=== PATIENT | male | born 1980 | race Caucasian/White ===

== ENCOUNTER 2021-12-07 11:08 | Emergency (ER) | payer OTHER ==
[~2021-12-07] VITALS: Ht 162.6 cm; Wt 72.6 kg
[2021-12-07 11:12] VITALS: BP 177/90
--- NOTE | 2021-12-07 11:24 | NUR ---
RECHECKED BS 229, RECHECKED TEMP 97.4 ORAL
--- NOTE | 2021-12-07 11:30 | NUR ---
WALKED IN ACCOMPANIED BY SISTER C/O NAUSEA AND VOMITING ONSET 1 DAY ACCOMPANIED BY EPIGASTRIC PAIN. PT BS 212 AT TRIAGE. AFEBRILE. ACTIVELY VOMITING YELLOW LIQUID AT BEDSIDE. PMH:DM1, DEAF, CARDIAC MURMUR NKA
[2021-12-07] MEDS ORDERED: ONDANSETRON 4 MG/2 ML VIAL ONE (11:34)
[2021-12-07] MEDS ORDERED: NACL 0.9% 1,000 ML IV SCH (11:35)
--- NOTE | 2021-12-07 11:35 | NUR ---
RECEIVED VERBAL ORDER FROM DR ROSA TO ADMINISTER 1L NS BOLUS AND 4MG ZOFRAN IVP.
[2021-12-07] MEDS ORDERED: ONDANSETRON 4 MG/2 ML VIAL IVP ONE (11:45)
--- NOTE | 2021-12-07 11:52 | NUR ---
XR AT BEDSIDE
--- NOTE | 2021-12-07 11:57 | NUR ---
URINE COLLECTED AND SENT TO LAB
[2021-12-07] MEDS ORDERED: HALOPERIDOL IM 5 MG/ML VIAL IM ONE (12:05)
[2021-12-07] MEDS ORDERED: FAMOTIDINE 20 MG/2 ML VIAL IVP ONE (12:10)
[2021-12-07] MEDS ORDERED: DICYCLOMINE HCL LIQUID 20 MG, ALUMINUM HYD/MAG/SIMETHICONE 30 ML, LIDOCAINE VISCOUS 2% ... PO ONE ×3 (12:45)
[2021-12-07 12:47] LABS: ALBUMIN 3.8 g/dL (3.4-5.0); ANION GAP 19.1 (8-16); CARBON DIOXIDE 21.5 mmol/L (21-32); CREATININE 0.9 mg/dL (0.6-1.3); POTASSIUM 3.6 mmol/L (3.5-5.1); TOTAL BILIRUBIN 0.7 mg/dL (0.0-1.0)
[2021-12-07] MEDS ORDERED: DICYCLOMINE HCL LIQUID 10 MG/5 ML UDC ONE (12:50)
[2021-12-07] MEDS ORDERED: ALUMINUM HYD/MAG/SIMETHICONE 30 ML UDC ONE (12:50)
[2021-12-07 12:51] LABS: BASOPHILS % (AUTO) 0.1 % (0.0-2.0); HEMATOCRIT 47.4 % (36-52); HEMOGLOBIN 15.9 g/dL (12.0-18.0); LYMPHOCYTES # (AUTO) 0.8 K/uL (2.0-11.5); LYMPHOCYTES % (AUTO) 5.1 % (20.5-51.1); MEAN CORPUSCULAR HEMOGLOBIN 30 pg (27-31); MEAN CORPUSCULAR HGB CONC 34 g/dL (33-37); MEAN CORPUSCULAR VOLUME 88.4 fL (80-94); MONOCYTES # (AUTO) 0.5 K/uL (0.8-1.0); NEUTROPHILS # (AUTO) 14.8 K/uL (1.8-7.7); NEUTROPHILS % (AUTO) 91.8 % (42.2-75.2); PLATELET COUNT (AUTO) 197 K/uL (140-450); RED BLOOD CELL COUNT(AUTO) 5.36 MIL/uL (4.20-6.10); RED CELL DISTRIBUTION WIDTH 13.1 % (11.6-13.7); WHITE BLOOD COUNT (AUTO) 16.1 K/uL (4.8-10.8)
[2021-12-07 13:56] LABS: APPEARANCE,URINE CLEAR (CLEAR); BILIRUBIN,URINE NEGATIVE (NEGATIVE); BLOOD, URINE NEGATIVE (NEGATIVE); COLOR,URINE YELLOW (YELLOW); LEUKOCYTE ESTERASE ,URINE NEGATIVE (NEGATIVE); NITRITE, URINE NEGATIVE (NEGATIVE); PH,URINE 7.5 (5.0-9.0); UGLUCOSE 3+ (NEGATIVE)
[2021-12-07] MEDS ORDERED: VITD400 PO (13:56)
[2021-12-07] MEDS ORDERED: DOCU-299 PO (13:59)
[2021-12-07] MEDS ORDERED: ACET-2619 PO (13:59)
[2021-12-07] MEDS ORDERED: ONDA-188 SL (13:59)
[2021-12-07] MEDS ORDERED: POLY17PD72 PO (13:59)
[2021-12-07 14:05] LABS: BARBITURATE, URINE NEGATIVE ng/ml (NEG <=200); BENZODIAZEPINE, URINE NEGATIVE ng/mL (NEG <=200); COCAINE, URINE NEGATIVE ng/mL (NEG <=300)
[2021-12-07 14:06] LABS: CANNABINOID, URINE POSITIVE ng/mL (NEG <=50); OPIATE, URINE NEGATIVE ng/mL (NEG <=2000); PHENCYCLIDINE SCREEN,URINE NEGATIVE ng/mL (NEG <=25)
[2021-12-07 14:14] VITALS: BP 110/65
--- NOTE | 2021-12-07 14:25 | NUR ---
Patient discharged with v/s stable. Written and verbal after care instructions given and explained. Patient alert, oriented and verbalized understanding of instructions. Ambulatory with steady gait. All questions addressed prior to discharge. ID band removed. Patient advised to follow up with PMD. Patient educated on indication of medication including possible reaction and side effects. Opportunity to ask questions provided and answered.
== END 2021-12-07 14:25 | disposition home or self-care (01) ==
LOC: MED 11:08
DX: A08.4 Viral intestinal infection, unspecified (principal); E11.65 Type 2 diabetes mellitus with hyperglycemia; F12.90 Cannabis use, unspecified, uncomplicated; H91.3 Deaf nonspeaking, not elsewhere classified; F84.0 Autistic disorder; Z79.899 Other long term (current) drug therapy
CPT/HCPCS: 36415; 74022; 80053; 80305; 81003; 83690; 85025; 96372; 96374; 96375; 99284; J1630; J2405; J3490; J7030

== ENCOUNTER 2021-12-09 09:06 | Emergency (ER) | payer OTHER ==
[~2021-12-09] VITALS: Ht 162.6 cm; Wt 75.3 kg
[~2021-12-09 09:06] MED LIST: ACET-2619 PO; DOCU-299 PO; ONDA-188 SL; POLY17PD72 PO; VITD400 PO
[2021-12-09 09:47] VITALS: BP 158/88
[2021-12-09] MEDS ORDERED: METOCLOPRAMIDE 10 MG/2 ML INJ VIAL IVP ONE (10:45)
[2021-12-09] MEDS ORDERED: FAMOTIDINE 20 MG/2 ML VIAL IVP ONE (10:45)
[2021-12-09] MEDS ORDERED: NACL 0.9% 1,000 ML IV SCH (10:45)
[2021-12-09 12:02] LABS: BASOPHILS % (AUTO) 0.2 % (0.0-2.0); HEMATOCRIT 49.5 % (36-52); HEMOGLOBIN 16.6 g/dL (12.0-18.0); LYMPHOCYTES # (AUTO) 0.9 K/uL (2.0-11.5); LYMPHOCYTES % (AUTO) 7.4 % (20.5-51.1); MEAN CORPUSCULAR HEMOGLOBIN 29 pg (27-31); MEAN CORPUSCULAR HGB CONC 34 g/dL (33-37); MEAN CORPUSCULAR VOLUME 87.4 fL (80-94); MONOCYTES # (AUTO) 0.2 K/uL (0.8-1.0); NEUTROPHILS # (AUTO) 10.6 K/uL (1.8-7.7); NEUTROPHILS % (AUTO) 90.4 % (42.2-75.2); PLATELET COUNT (AUTO) 201 K/uL (140-450); RED BLOOD CELL COUNT(AUTO) 5.66 MIL/uL (4.20-6.10); RED CELL DISTRIBUTION WIDTH 13.4 % (11.6-13.7); WHITE BLOOD COUNT (AUTO) 11.7 K/uL (4.8-10.8)
[2021-12-09 12:13] LABS: APPEARANCE,URINE CLEAR (CLEAR); BILIRUBIN,URINE NEGATIVE (NEGATIVE); BLOOD, URINE TRACE-I (NEGATIVE); COLOR,URINE YELLOW (YELLOW); LEUKOCYTE ESTERASE ,URINE NEGATIVE (NEGATIVE); NITRITE, URINE NEGATIVE (NEGATIVE); PH,URINE 6.5 (5.0-9.0); UGLUCOSE 3+ (NEGATIVE)
[2021-12-09 12:25] LABS: CARBON DIOXIDE 25.7 mmol/L (21-32); CREATININE 0.9 mg/dL (0.6-1.3); POTASSIUM 4.7 mmol/L (3.5-5.1); TOTAL BILIRUBIN 0.6 mg/dL (0.0-1.0)
[2021-12-09 12:53] LABS: RBC,URINE 0-5 /HPF (0-5); WBC,URINE 0-5 /HPF (0-5)
[2021-12-09] MEDS ORDERED: METO-485 PO (13:04)
[2021-12-09 17:29] VITALS: BP 127/76
--- NOTE | 2021-12-09 17:30 | NUR ---
pt discharged home w family member at 1440, pt ambulatory w steady gait, no ac distress, denies any pain, no nausea or vomiting, pt to follow up w pmd in 3-4 days, denies any further questions
== END 2021-12-09 14:40 | disposition home or self-care (01) ==
LOC: MED 09:06
DX: K59.00 Constipation, unspecified (principal); R10.13 Epigastric pain; E11.9 Type 2 diabetes mellitus without complications; Z79.4 Long term (current) use of insulin; Z79.899 Other long term (current) drug therapy
CPT/HCPCS: 36415; 74176; 80053; 81001; 83690; 85025; 93005; 96361; 96374; 96375; 99285; J2765; J3490; J7030